=== PATIENT | male | born 1940 | race Caucasian/White ===

== ENCOUNTER 2021-01-28 21:37 | Inpatient (IN) | payer OTHER ==
[~2021-01-28] VITALS: Ht 170.2 cm; Wt 80.7 kg
--- NOTE | 2021-01-28 22:19 | NUR ---
BIB DAUGHTER FOR C/O INCREASED CONFUSION AND AGITATION. BIZARRE BEHAVIOR SUCH STICKING HIS HANDS IN THE POWER OUTLET OR FREQUENT MASTERBATION. PT WAS PLACED IN BED 11 ER, ON MONITOR. VSS. WILL CONT TO MONITOR,
[2021-01-28 22:40] LABS: BASOPHILS % (AUTO) 0.7 % (0.0-2.0); EOSINOPHILS % (AUTO) 4.7 % (0.0-6.0); HEMATOCRIT 37 % (39-51); HEMOGLOBIN 12.6 g/dL (13.5-17.5); LYMPHOCYTES # (AUTO) 1.5 /CMM (0.8-4.8); LYMPHOCYTES % (AUTO) 25.4 % (20.0-44.0); MEAN CORPUSCULAR HGB CONC 34 g/dl (31.0-36.0); MEAN CORPUSCULAR VOLUME 86 fL (80-96); MONOCYTES # (AUTO) 0.5 /CMM (0.1-1.30); MONOCYTES % (AUTO) 8.1 % (2.0-12.0); NEUTROPHILS # (AUTO) 3.5 /CMM (1.8-8.9); NEUTROPHILS % (AUTO) 61.1 % (43.0-81.0); PLATELET COUNT (AUTO) 185 /CMM (150-450); RED BLOOD CELL COUNT(AUTO) 4.27 MIL/uL (4.5-6.0); WHITE BLOOD COUNT (AUTO) 5.7 K/uL (4.3-11.0)
[2021-01-28 22:46] LABS: CALCIUM, SERUM 8.6 mg/dL (8.5-10.1); CARBON DIOXIDE 31 mmol/L (21-32); CHLORIDE 107 mmol/L (98-107); CREATININE 0.9 mg/dL (0.6-1.3); GLUCOSE 115 mg/dL (74-106); POTASSIUM 4.2 mmol/L (3.5-5.1); SODIUM SERUM 143 mmol/L (136-145); UREA NITROGEN, BLOOD 18 mg/dL (7-18)
[2021-01-28 22:52] LABS: ALANINE AMINOTRANSFERASE 16 U/L (12-78); ALBUMIN 3.7 g/dL (3.4-5.0); ALKALINE PHOSPHATASE 106 U/L (46-116); ASPARTATE AMINOTRANSFERASE 13 U/L (15-37); BILIRUBIN,DIRECT 0.1 mg/dL (0.0-0.2); BILIRUBIN,TOTAL 0.2 mg/dL (0.2-1.0); TOTAL PROTEIN, SERUM 7.1 g/dL (6.4-8.2)
[2021-01-28 22:53] LABS: ACETAMINOPHEN 0 ug/ml (10-30); ALCOHOL, BLOOD < 3 mg/dL (0-0)
[2021-01-28] MEDS ORDERED: ASPI-1169 PO (23:15)
[2021-01-28] MEDS ORDERED: SERT50TA PO (23:15)
[2021-01-28] MEDS ORDERED: PHEN100C4 PO (23:15)
[2021-01-28] MEDS ORDERED: TAMS-12 PO (23:15)
[2021-01-28] MEDS ORDERED: MEMA10TA PO (23:15)
[2021-01-28] MEDS ORDERED: RISP0.5T5 PO (23:15)
[2021-01-28] MEDS ORDERED: DONE10TA11 PO (23:15)
[2021-01-28] MEDS ORDERED: METF-442 PO (23:15)
[2021-01-28] MEDS ORDERED: FINA5TAB11 PO (23:15)
[2021-01-28] MEDS ORDERED: PRAV20TA4 PO (23:15)
[2021-01-28] MEDS ORDERED: MAG HYDROX/AL HYDROX/SIMETH 30 ML UDC PO PRN (23:30)
[2021-01-28] MEDS ORDERED: ONDANSETRON HCL/PF 4 MG/2 ML VIAL IVP PRN (23:30)
[2021-01-28] MEDS ORDERED: TEMAZEPAM 15 MG CAPSULE PO PRN (23:30)
[2021-01-28] MEDS ORDERED: ACETAMINOPHEN 325 MG TABLET PO PRN (23:30)
[2021-01-28] MEDS ORDERED: MAGNESIUM HYDROXIDE 30 ML UDC PO PRN (23:30)
[2021-01-28] MEDS ORDERED: HYDROCODONE/APAP 5/325MG TABLET PO PRN (23:30)
[2021-01-28] MEDS ORDERED: Z GUARD REMEDY 2 OZ OINT TP PRN (23:30)
--- NOTE | 2021-01-28 23:35 | NUR ---
covid negative, per lab
--- NOTE | 2021-01-29 00:15 | NUR ---
MS 310-2
--- NOTE | 2021-01-29 00:26 | NUR ---
REPORT GIVENT TO DEMARIO ON THIRD FLOOR
[2021-01-29 01:10] VITALS: BP 129/88
--- NOTE | 2021-01-29 01:12 | NUR ---
PT WAS TRANSFERRED TO [facility] IN STABLE CONDITION
--- NOTE | 2021-01-29 01:29 | NUR ---
MS CASTING MACHINE OPERATOR AUTOMATIC NOTE RECEIVED PATIENT VIA GURNEY. AMBULATED TO BED WITH ASSISTANCE. ABLE TO SAY NAME AND , KNOWS HE IS IN THE HOSPITAL BUT NOT WHICH HOSPITAL. CANT GIVE ANY OTHER MEANINGFUL INFORMATION ABOUT HEALTH. TOLERATING ROOM AIR. RESPIRATIONS ARE EVEN AND UNLABORED. NO S/S SOB NOTED. NO C/O PAIN AT THIS TIME. IN NO APPARENT DISTRESS. IV ACCESS IN LEFT HAND #22 PATENT AND SALINE LOCKED. INITIAL PHYSICAL ASSESSMENT COMPLETED AT THIS TIME. SKIN ASSESSMENT DONE, SKIN INTACT. MECHANICAL MAINTENANCE WORKER OBTAINED VITALS AND COMPLETED BELONGINGS LIST. BED IS LOW AND LOCKED, HOB ELEVATED IN SEMI FOWLERS, SIDE RIAL SUP X2, CALL LIGHT WITHIN REACH, INFORMED ON USE. WILL CONTINUE TO MONITOR THROUGHOUT SHIFT.
[2021-01-29 01:46] VITALS: BP 129/88
--- NOTE | 2021-01-29 05:00 | NUR ---
MS RN NOTE PATIENT REFUSED AM LABS. INFORMED HIM OF BENEFITS AND IMPORTANCE. CONTINUES TO REFUSE.
--- NOTE | 2021-01-29 06:49 | NUR ---
MS RN CLOSING NOTE PATIENT RESTING IN BED. A/OX1-2, CONFUSED. REMAINS TOLERATING ROOM AIR. NO C/O PAIN. NO DISTRESS. IV ACCESS IN LEFT HAND #22 MAINTAINED. BED REMAINS LOW AND LOCKED, HOB ELEVATED IN SEMI FOWLERS, SIDE RIAL SUP X2, CALL LIGHT WITHIN REACH. WILL ENDORSE TO ONCOMING SHIFT.
[2021-01-29 08:00] VITALS: BP 128/71
[2021-01-29] MEDS: MEMANTINE HCL 5 MG TABLET PO SCH ×2 (10:16→17:38)
[2021-01-29] MEDS: ASPIRIN 81 MG TAB.CHEW PO SCH (10:16)
[2021-01-29] MEDS: PHENYTOIN EXTENDED RELEASE 100 MG CAPSULE PO SCH ×3 (10:17→17:38)
[2021-01-29] MEDS: FINASTERIDE (5 MG) 5 MG TABLET PO SCH (10:17)
[2021-01-29] MEDS: SERTRALINE HCL 50 MG TABLET PO SCH (10:17)
[2021-01-29] MEDS: METFORMIN 500 MG TABLET PO SCH ×2 (10:20→17:39)
[2021-01-29] MEDS: PANTOPRAZOLE 40 MG TABLET.DR PO SCH (10:20)
--- NOTE | 2021-01-29 15:00 | NUR ---
refused labs today,has sitter,urine sent down for urinalysis.
[2021-01-29 16:00] VITALS: BP 139/77
--- NOTE | 2021-01-29 16:30 | NUR ---
now agreed to labs.texted dr. conklin as pt. c/o swelling rt inner thigh near knee.given orders per dr. conklin.
[2021-01-29 17:07] LABS: BASOPHILS % (AUTO) 0.7 % (0.0-2.0); EOSINOPHILS % (AUTO) 4.7 % (0.0-6.0); HEMATOCRIT 35 % (39-51); LYMPHOCYTES # (AUTO) 1.2 /CMM (0.8-4.8); LYMPHOCYTES % (AUTO) 24.4 % (20.0-44.0); MEAN CORPUSCULAR HGB CONC 35 g/dl (31.0-36.0); MEAN CORPUSCULAR VOLUME 86 fL (80-96); MONOCYTES # (AUTO) 0.4 /CMM (0.1-1.30); MONOCYTES % (AUTO) 7.7 % (2.0-12.0); NEUTROPHILS # (AUTO) 3.2 /CMM (1.8-8.9); NEUTROPHILS % (AUTO) 62.5 % (43.0-81.0); PLATELET COUNT (AUTO) 187 /CMM (150-450); RED BLOOD CELL COUNT(AUTO) 4.07 MIL/uL (4.5-6.0)
[2021-01-29 17:20] LABS: BILIRUBIN,URINE NEGATIVE (NEGATIVE); COLOR,URINE YELLOW (YELLOW); LEUKOCYTE ESTERASE ,URINE NEGATIVE (NEGATIVE); NITRITE, URINE NEGATIVE (NEGATIVE); PH,URINE 5.5 (5.0-8.0); PROTEIN,URINE NEGATIVE (NEGATIVE); UGLUCOSE 100 MG/DL mg/dL (NEGATIVE); UROBILINOGEN,URINE 0.2 EU/dL (0.2)
[2021-01-29 17:23] LABS: CALCIUM, SERUM 7.9 mg/dL (8.5-10.1); CREATININE 0.7 mg/dL (0.6-1.3); MAGNESIUM 1.7 mg/dL (1.8-2.4); PHOSPHORUS 2.8 mg/dL (2.5-4.9); POTASSIUM 4.1 mmol/L (3.5-5.1)
[2021-01-29 17:35] LABS: THYROID STIMULATING HORMONE 1.108 uIU/mL (0.358-3.74)
[2021-01-29] MEDS: risperiDONE 0.25 MG TABLET PO SCH (17:38)
--- NOTE | 2021-01-29 18:50 | NUR ---
TECH HERE TO DO VENOUS AND ARTERIAL STUDIES.
--- NOTE | 2021-01-29 19:35 | NUR ---
MS RN NOTES RECEIVED SITTING ON EDGE OF BED,A/O X2,WANTS TO USE THE RESTROOM,SITTER AT BEDSIDE FOR SAFETY,SALINE LOCK LEFT INTACT AND PATENT.NO COMPLAINTS AT THE MOMENT,CALL LIGHT IN REACH,NEEDS ANTICIPATED.
[2021-01-29 20:00] VITALS: BP 140/84
--- NOTE | 2021-01-29 20:00 | NUR ---
MS RN NOTES ARTERIAL DUPLEX ULTRASOUND RIGHT THIGH NEGATIVE FOR DEEP VEIN THROMBOSIS
[2021-01-29] MEDS: HEPARIN SODIUM, PORCINE 5000 UNITS/1 ML VIAL SQ SCH ×2 (21:00→21:19)
--- NOTE | 2021-01-29 21:00 | NUR ---
MS RN NOTES DUE PO MEDS TAKEN.REFUSED HEPARIN DOSE FOR DVT PROPHYLAXIS,EXPLAINED RISK AND BENEFITS,STILL REFUSED.CHARGE NURSE MADE AWARE.
[2021-01-29] MEDS: DONEPEZIL 5 MG TABLET PO SCH (21:20)
[2021-01-29] MEDS: TAMSULOSIN 0.4 MG CAP.SR.24H PO SCH (21:20)
[2021-01-29] MEDS: ATORVASTATIN 10 MG TABLET PO SCH (21:21)
--- NOTE | 2021-01-29 22:49 | NUR ---
MS RN NOTES C/O INSOMNIA,RESTORIL 15MG PO GIVEN PER PATIENT REQUEST
--- NOTE | 2021-01-30 02:00 | NUR ---
MS RN NOTES SLEEPING,KEPT WARM AND COMFORTABLE.SITTER AT BEDSIDE.
[2021-01-30 06:06] LABS: BASOPHILS % (AUTO) 0.4 % (0.0-2.0); EOSINOPHILS % (AUTO) 4.6 % (0.0-6.0); HEMATOCRIT 36 % (39-51); HEMOGLOBIN 12.7 g/dL (13.5-17.5); LYMPHOCYTES # (AUTO) 1.1 /CMM (0.8-4.8); LYMPHOCYTES % (AUTO) 19.2 % (20.0-44.0); MEAN CORPUSCULAR HGB CONC 35 g/dl (31.0-36.0); MEAN CORPUSCULAR VOLUME 85 fL (80-96); MONOCYTES # (AUTO) 0.5 /CMM (0.1-1.30); MONOCYTES % (AUTO) 8.6 % (2.0-12.0); NEUTROPHILS # (AUTO) 3.9 /CMM (1.8-8.9); NEUTROPHILS % (AUTO) 67.2 % (43.0-81.0); PLATELET COUNT (AUTO) 181 /CMM (150-450); RED BLOOD CELL COUNT(AUTO) 4.25 MIL/uL (4.5-6.0); WHITE BLOOD COUNT (AUTO) 5.8 K/uL (4.3-11.0)
[2021-01-30 06:13] LABS: CALCIUM, SERUM 8.8 mg/dL (8.5-10.1); CREATININE 0.8 mg/dL (0.6-1.3); MAGNESIUM 1.9 mg/dL (1.8-2.4); PHOSPHORUS 3.1 mg/dL (2.5-4.9); POTASSIUM 3.9 mmol/L (3.5-5.1)
--- NOTE | 2021-01-30 06:42 | NUR ---
MS RN NOTES FAIRLY RESTED AT NIGHT,FALL RISK,SITTER AT BEDSIDE,SLEPT 7 HOURS LAST NIGHT.IN NO ACUTE DISTRESS.WILL ENDORSE TO DAY NURSE FOR LETY.
--- NOTE | 2021-01-30 08:01 | NUR ---
RN OPENING NOTE RECEIVED PATIENT IN BED, AO X 2, ABLE TO RESPONDS ALL STIMULI. SKIN IS WARM TO TOUCH, KEEP CLEAN/DRY INTACT IV SITE. RESPIRATORY EVEN AND UNLABORED IN ROOM AIR. KEPT ELEVATED HOB FOR ENSURE AIR AND ASPIRATION PRECAUTION, ALSO LOWEST BED POSITION FOR SAFETY. SITTER AT BED SIDE. CALL LIGHT WITHIN REACH, WILL CONTINUE TO MONITOR.
[2021-01-30] MEDS: ASPIRIN 81 MG TAB.CHEW PO SCH (08:25)
[2021-01-30] MEDS: MEMANTINE HCL 5 MG TABLET PO SCH ×2 (08:25→17:06)
[2021-01-30] MEDS: SERTRALINE HCL 50 MG TABLET PO SCH (08:25)
[2021-01-30] MEDS: PANTOPRAZOLE 40 MG TABLET.DR PO SCH (08:25)
[2021-01-30] MEDS: PHENYTOIN EXTENDED RELEASE 100 MG CAPSULE PO SCH ×3 (08:26→17:06)
[2021-01-30] MEDS: METFORMIN 500 MG TABLET PO SCH ×2 (08:26→17:06)
[2021-01-30] MEDS: FINASTERIDE (5 MG) 5 MG TABLET PO SCH (08:26)
[2021-01-30 08:27] VITALS: BP 122/75
[2021-01-30] MEDS: HEPARIN SODIUM, PORCINE 5000 UNITS/1 ML VIAL SQ SCH ×2 (08:28→20:51)
[2021-01-30 16:00] VITALS: BP 126/77
[2021-01-30] MEDS: risperiDONE 0.25 MG TABLET PO SCH (17:06)
[2021-01-30 20:00] VITALS: BP 128/70
--- NOTE | 2021-01-30 20:00 | NUR ---
MS RN OPENING NOTE RECEIVED PT AWAKE IN BED. A/O X 2, ABLE TO RESPONDS ALL STIMULI. PT STABLE ON ROOM AIR. NO SOB NOTED. NO S/S OF RESPIRATORY DISTRESS. PT IS AMBULATORY WITH ASSIST. PT HAS NO C/O PAIN AT THIS TIME. IV ACCESS IN LEFT HAND #22. IV IS INTACT, PATENT, AND FLUSHING WELL. SAFETY AND ASPIRATION PRECAUTIONS MAINTAINED. BED IN LOWEST LOCKED POSITION, HOB ELEVATED, SIDE RAILS UP X2. CALL LIGHT AND TABLE WITHIN REACH. WILL CONTINUE WITH PLAN OF CARE.
[2021-01-30] MEDS: ATORVASTATIN 10 MG TABLET PO SCH (21:04)
[2021-01-30] MEDS: DONEPEZIL 5 MG TABLET PO SCH (21:04)
[2021-01-30] MEDS: TAMSULOSIN 0.4 MG CAP.SR.24H PO SCH (21:04)
--- NOTE | 2021-01-31 06:07 | NUR ---
MS RN CLOSING NOTE PT IS IN BED WITH EYES CLOSED, EASY TO AROUSE. A/O X 2, ABLE TO RESPOND TO ALL STIMULI. PT STABLE ON ROOM AIR. NO SOB NOTED. NO S/S OF RESPIRATORY DISTRESS. PT IS AMBULATORY WITH ASSIST. PT HAS NO C/O PAIN AT THIS TIME. IV ACCESS IS INTACT, PATENT, AND FLUSHING WELL. ALL NEEDS HAVE BEEN MET. SAFETY AND ASPIRATION PRECAUTIONS MAINTAINED AT ALL TIMES. BED IN LOWEST LOCKED POSITION, HOB ELEVATED, SIDE RAILS UP X2. CALL LIGHT AND TABLE WITHIN REACH. WILL ENDORSE TO ONCOMING NURSE FOR LETY.
[2021-01-31 06:15] LABS: BASOPHILS % (AUTO) 0.4 % (0.0-2.0); EOSINOPHILS % (AUTO) 5.2 % (0.0-6.0); HEMATOCRIT 35 % (39-51); HEMOGLOBIN 12.4 g/dL (13.5-17.5); LYMPHOCYTES # (AUTO) 1.3 /CMM (0.8-4.8); LYMPHOCYTES % (AUTO) 24.5 % (20.0-44.0); MEAN CORPUSCULAR HGB CONC 36 g/dl (31.0-36.0); MEAN CORPUSCULAR VOLUME 84 fL (80-96); MONOCYTES # (AUTO) 0.4 /CMM (0.1-1.30); MONOCYTES % (AUTO) 8.2 % (2.0-12.0); NEUTROPHILS # (AUTO) 3.2 /CMM (1.8-8.9); NEUTROPHILS % (AUTO) 61.7 % (43.0-81.0); PLATELET COUNT (AUTO) 180 /CMM (150-450); RED BLOOD CELL COUNT(AUTO) 4.14 MIL/uL (4.5-6.0); WHITE BLOOD COUNT (AUTO) 5.2 K/uL (4.3-11.0)
[2021-01-31 07:18] LABS: CALCIUM, SERUM 8.8 mg/dL (8.5-10.1); CREATININE 0.8 mg/dL (0.6-1.3); MAGNESIUM 1.7 mg/dL (1.8-2.4); PHOSPHORUS 3.9 mg/dL (2.5-4.9); POTASSIUM 4.1 mmol/L (3.5-5.1)
--- NOTE | 2021-01-31 08:00 | NUR ---
RN NOTE PT AWAKE IN BED RESTING. A/O X2 AND [place] SPEAKING. NO COMPLAINT OF PAIN OR NAUSEA PRESENT. CURRENTLY ON RA WITH NO SOB OR RESPIRATORY DISTRESS PRESENT. PT IS AMBULATORY WITH WALKER ASSISTANCE AND BATHROOM PRIVILEGES. SKIN IS INTACT. NO EDEMA PRESENT. ON CCHO DIET. HL PRESENT ON L HAND 22G AND FLUSHES WELL. SAFETY MEASURES IN PLACE. SIDE RAILS RAISED. BED LOWERED. CALL LIGHT WITHIN REACH. WILL CONTINUE TO MONITOR.
[2021-01-31] MEDS: PHENYTOIN EXTENDED RELEASE 100 MG CAPSULE PO SCH ×3 (08:35→17:02)
[2021-01-31] MEDS: FINASTERIDE (5 MG) 5 MG TABLET PO SCH (08:35)
[2021-01-31] MEDS: SERTRALINE HCL 50 MG TABLET PO SCH (08:35)
[2021-01-31] MEDS: METFORMIN 500 MG TABLET PO SCH ×2 (08:35→17:02)
[2021-01-31] MEDS: MEMANTINE HCL 5 MG TABLET PO SCH ×2 (08:35→17:02)
[2021-01-31] MEDS: ASPIRIN 81 MG TAB.CHEW PO SCH (08:35)
[2021-01-31] MEDS: HEPARIN SODIUM, PORCINE 5000 UNITS/1 ML VIAL SQ SCH ×3 (08:38→21:35)
[2021-01-31] MEDS: PANTOPRAZOLE 40 MG TABLET.DR PO SCH (08:48)
[2021-01-31] MEDS: Magnesium 1GM/D5W 100ML PREMIX 100 ML IV SCH ×2 (10:54→12:14)
[2021-01-31] MEDS ORDERED: MAG HYDROX/AL HYDROX/SIMETH 30 ML UDC PO PRN (13:00)
--- NOTE | 2021-01-31 14:00 | NUR ---
RN NOTE PT COMPLAINT OF PAIN IN STOMACH. MAALOX GIVEN TO PT. REASSESSMENT OF PT 1 HR AFTER ADMIN SHOWS NO MORE PAIN IN STOMACH. WILL CONTINUE TO MONITOR
[2021-01-31 16:00] VITALS: BP 109/64
[2021-01-31] MEDS: risperiDONE 0.25 MG TABLET PO SCH (17:02)
--- NOTE | 2021-01-31 18:26 | NUR ---
RN CLOSING NOTE PT AWAKE IN BED RESTING. A/O X2 AND [place] SPEAKING. NO COMPLAINT OF PAIN OR NAUSEA PRESENT. CURRENTLY ON RA WITH NO SOB OR RESPIRATORY DISTRESS PRESENT. PT IS AMBULATORY WITH WALKER ASSISTANCE AND BATHROOM PRIVILEGES. SKIN IS INTACT. NO EDEMA PRESENT. ON CCHO DIET. HL PRESENT ON L HAND 22G AND FLUSHES WELL. ROUTINE MEDS GIVEN. SAFETY MEASURES IN PLACE. SIDE RAILS RAISED. BED LOWERED. CALL LIGHT WITHIN REACH. REPORT TO BE GIVEN TO NIGHT NURSE FOR LETY.
--- NOTE | 2021-01-31 19:30 | NUR ---
RN OPENING NOTE PATIENT IN BED EYES CLOSED, EASILY AWAKENED. PATIENT IS A/O X 3. PATIENT IS ABLE TO MAKE NEEDS KNOWN. CURRENTLY TOLERATING ROOM AIR, BREATHING EVEN AND UNLABORED. L HAND 22 G PATENT. SAFETY MEASURES IN PLACE: BED IN LOCKED AND LOWEST POSITION, SIDE RAILS UP X 2, CALL LIGHT WITHIN REACH. WILL MONITOR PATIENT CLOSELY.
[2021-01-31 20:00] VITALS: BP 109/64
[2021-01-31] MEDS: DONEPEZIL 5 MG TABLET PO SCH (21:33)
[2021-01-31] MEDS: TAMSULOSIN 0.4 MG CAP.SR.24H PO SCH (21:33)
[2021-01-31] MEDS: ATORVASTATIN 10 MG TABLET PO SCH (21:33)
--- NOTE | 2021-01-31 21:40 | NUR ---
PATIENT REFUSED HEPARIN SUBCUTANEOUS, HE STATES THAT THE INJECTION "MAKES ME SICK". EDUCATED PATIENT REGARDING MEDICATION BUT STILL REFUSES.
[2021-01-31 22:00] VITALS: BP 109/64
--- NOTE | 2021-02-01 07:34 | NUR ---
RN CLOSING NOTE PATIENT DOES NOT APPEAR TO BE IN ANY APPARENT DISTRESS, ENDORSED TO DAY SHIFT NURSE FOR LETY.
[2021-02-01 08:00] VITALS: BP 120/76
[2021-02-01] MEDS: SERTRALINE HCL 50 MG TABLET PO SCH (08:40)
[2021-02-01] MEDS: ASPIRIN 81 MG TAB.CHEW PO SCH (08:40)
[2021-02-01] MEDS: FINASTERIDE (5 MG) 5 MG TABLET PO SCH (08:40)
[2021-02-01] MEDS: PHENYTOIN EXTENDED RELEASE 100 MG CAPSULE PO SCH ×3 (08:40→17:12)
[2021-02-01] MEDS: METFORMIN 500 MG TABLET PO SCH ×2 (08:40→17:12)
[2021-02-01] MEDS: MEMANTINE HCL 5 MG TABLET PO SCH ×2 (08:41→17:11)
[2021-02-01] MEDS: PANTOPRAZOLE 40 MG TABLET.DR PO SCH (08:42)
[2021-02-01 16:00] VITALS: BP 114/70
--- NOTE | 2021-02-01 17:08 | NUR ---
RN CLOSING NOTE PT AWAKE IN BED RESTING. A/O X2 AND [place] SPEAKING. NO COMPLAINT OF PAIN OR NAUSEA PRESENT. CURRENTLY ON RA WITH NO SOB OR RESPIRATORY DISTRESS PRESENT. PT IS AMBULATORY WITH WALKER ASSISTANCE AND BATHROOM PRIVILEGES. SKIN IS INTACT. NO EDEMA PRESENT. ON CCHO DIET. HL PRESENT ON L HAND 22G AND FLUSHES WELL. ROUTINE MEDS GIVEN. SAFETY MEASURES IN PLACE. SIDE RAILS RAISED. BED LOWERED. CALL LIGHT WITHIN REACH. REPORT TO BE GIVEN TO NIGHT NURSE FOR LETY.
[2021-02-01] MEDS: risperiDONE 0.25 MG TABLET PO SCH (17:11)
--- NOTE | 2021-02-01 19:30 | NUR ---
MS RN OPENING NOTES: RECEIVED PATIENT SLEEP IN BED COMFORTABLY, BED IN LOW POSITION, CALL LIGHTS WITHIN REACH, NO COMPLAIN OF PAIN AND DISCOMFORT AT THIS TIME, A/OX3, PATIENT WAS KNOWN WANDERING AROUND WITH 1:1 SITTER, AMBULATORY WITH SUPERVISION, PATIENT IS CONTINENT, WITH BRP/ URINAL. WITH IV LINE LARM #22 SL. SKIN IS INTACT, ALL NEEDS MET,KEPT CLEAN AND DRY, WILL CONTINUE TO MONITOR.
[2021-02-01 19:50] VITALS: BP 109/61
[2021-02-01 20:18] LABS: BASOPHILS % (AUTO) 0.5 % (0.0-2.0); EOSINOPHILS % (AUTO) 5.6 % (0.0-6.0); HEMATOCRIT 33 % (39-51); HEMOGLOBIN 11.5 g/dL (13.5-17.5); LYMPHOCYTES # (AUTO) 1.3 /CMM (0.8-4.8); LYMPHOCYTES % (AUTO) 23.3 % (20.0-44.0); MEAN CORPUSCULAR HGB CONC 35 g/dl (31.0-36.0); MEAN CORPUSCULAR VOLUME 85 fL (80-96); MONOCYTES # (AUTO) 0.5 /CMM (0.1-1.30); NEUTROPHILS # (AUTO) 3.5 /CMM (1.8-8.9); NEUTROPHILS % (AUTO) 61.6 % (43.0-81.0); PLATELET COUNT (AUTO) 173 /CMM (150-450); RED BLOOD CELL COUNT(AUTO) 3.88 MIL/uL (4.5-6.0); WHITE BLOOD COUNT (AUTO) 5.6 K/uL (4.3-11.0)
[2021-02-01 20:39] LABS: CALCIUM, SERUM 8.6 mg/dL (8.5-10.1); CREATININE 0.9 mg/dL (0.6-1.3); PHOSPHORUS 3.3 mg/dL (2.5-4.9); POTASSIUM 4.5 mmol/L (3.5-5.1)
[2021-02-01] MEDS: DONEPEZIL 5 MG TABLET PO SCH (21:12)
[2021-02-01] MEDS: ATORVASTATIN 10 MG TABLET PO SCH (21:13)
[2021-02-01] MEDS: TAMSULOSIN 0.4 MG CAP.SR.24H PO SCH (21:13)
[2021-02-01] MEDS: HEPARIN SODIUM, PORCINE 5000 UNITS/1 ML VIAL SQ SCH (21:14)
[2021-02-02 06:10] LABS: BASOPHILS % (AUTO) 0.8 % (0.0-2.0); EOSINOPHILS % (AUTO) 6.1 % (0.0-6.0); HEMATOCRIT 34 % (39-51); LYMPHOCYTES # (AUTO) 1.1 /CMM (0.8-4.8); LYMPHOCYTES % (AUTO) 23.7 % (20.0-44.0); MEAN CORPUSCULAR HGB CONC 35 g/dl (31.0-36.0); MEAN CORPUSCULAR VOLUME 85 fL (80-96); MONOCYTES # (AUTO) 0.4 /CMM (0.1-1.30); MONOCYTES % (AUTO) 9.5 % (2.0-12.0); NEUTROPHILS # (AUTO) 2.8 /CMM (1.8-8.9); NEUTROPHILS % (AUTO) 59.9 % (43.0-81.0); PLATELET COUNT (AUTO) 182 /CMM (150-450); RED BLOOD CELL COUNT(AUTO) 4.01 MIL/uL (4.5-6.0); WHITE BLOOD COUNT (AUTO) 4.7 K/uL (4.3-11.0)
--- NOTE | 2021-02-02 06:26 | NUR ---
MS RN CLOSING NOTES: PATIENT IN SLEEP IN BED COMFORTABLY, NO COMPLAIN OF PAIN AND DISCOMFORT, BED IN LOW POSITION, CALL LIGHTS WITHIN REACH, SAMI SPEAKING , ABLE TO EXPRESS NEEDS, PATIENT WAS AMBULATORY WITH ASSISTANCE, WITH IV LINE #22 SL DUE MEDS GIVEN, ALL NEEDS MET, KEPT CLEAN AND DRY, WITH 1:1 SITTER , WILL ENDORSE TO INCOMING SHIFT.
[2021-02-02 06:55] LABS: CALCIUM, SERUM 8.1 mg/dL (8.5-10.1); CREATININE 0.7 mg/dL (0.6-1.3); MAGNESIUM 2.1 mg/dL (1.8-2.4); PHOSPHORUS 3.4 mg/dL (2.5-4.9); POTASSIUM 4.1 mmol/L (3.5-5.1)
--- NOTE | 2021-02-02 08:00 | NUR ---
RN OPENING NOTE PT AWAKE IN BED RESTING. A/O X2 AND PORTUGUESE SPEAKING. NO COMPLAINT OF PAIN OR NAUSEA PRESENT. CURRENTLY ON RA WITH NO SOB OR RESPIRATORY DISTRESS PRESENT. PT IS AMBULATORY WITH WALKER ASSISTANCE AND BATHROOM PRIVILEGES. SKIN IS INTACT. NO EDEMA PRESENT. ON CCHO DIET. HL PRESENT ON L HAND 22G AND FLUSHES WELL. SAFETY MEASURES IN PLACE. SIDE RAILS RAISED. BED LOWERED. CALL LIGHT WITHIN REACH. WILL CONTINUE TO MONITOR.
[2021-02-02] MEDS: FINASTERIDE (5 MG) 5 MG TABLET PO SCH (08:48)
[2021-02-02] MEDS: SERTRALINE HCL 50 MG TABLET PO SCH (08:48)
[2021-02-02] MEDS: MEMANTINE HCL 5 MG TABLET PO SCH ×2 (08:48→17:04)
[2021-02-02] MEDS: METFORMIN 500 MG TABLET PO SCH ×2 (08:48→17:04)
[2021-02-02] MEDS: ASPIRIN 81 MG TAB.CHEW PO SCH (08:48)
[2021-02-02] MEDS: PANTOPRAZOLE 40 MG TABLET.DR PO SCH (08:48)
[2021-02-02] MEDS: PHENYTOIN EXTENDED RELEASE 100 MG CAPSULE PO SCH ×3 (08:48→17:04)
[2021-02-02] MEDS: HEPARIN SODIUM, PORCINE 5000 UNITS/1 ML VIAL SQ SCH ×2 (08:54→20:35)
[2021-02-02] MEDS ORDERED: NEOMY SULF/BACITRAC ZN/POLY 15 GM TUBE TP SCH (10:00)
[2021-02-02 16:28] VITALS: BP 123/68
[2021-02-02] MEDS: risperiDONE 0.25 MG TABLET PO SCH (17:04)
--- NOTE | 2021-02-02 18:19 | NUR ---
RN CLOSING NOTE PT AWAKE IN BED RESTING. A/O X2 AND [place] SPEAKING. NO COMPLAINT OF PAIN OR NAUSEA PRESENT. CURRENTLY ON RA WITH NO SOB OR RESPIRATORY DISTRESS PRESENT. PT IS AMBULATORY WITH WALKER ASSISTANCE AND BATHROOM PRIVILEGES. PT WANDERS HALLWAYS FREQUENTLY AND OBSERVED THROUGHOUT SHIFT. SKIN IS INTACT. NO EDEMA PRESENT. ON CCHO DIET. HL PRESENT ON L HAND 22G AND FLUSHES WELL. SAFETY MEASURES IN PLACE. SIDE RAILS RAISED. BED LOWERED. CALL LIGHT WITHIN REACH. REPORT TO BE GIVEN TO NIGHT NURSE FOR LETY.
--- NOTE | 2021-02-02 19:39 | NUR ---
MS RN OPENING NOTE RECEIVED PT AWAKE IN BED. A/O X 2, ABLE TO RESPOND TO ALL STIMULI. PT STABLE ON ROOM AIR. NO SOB NOTED. NO S/S OF RESPIRATORY DISTRESS. PT IS AMBULATORY WITH WALKER ASSIST. PT HAS NO C/O PAIN AT THIS TIME. IV ACCESS IN LEFT HAND #22, SALINE-LOCKED. IV IS INTACT, PATENT, AND FLUSHING WELL. SAFETY AND ASPIRATION PRECAUTIONS MAINTAINED. BED IN LOWEST LOCKED POSITION, HOB ELEVATED, SIDE RAILS UP X2. CALL LIGHT AND TABLE WITHIN REACH. WILL CONTINUE WITH PLAN OF CARE.
[2021-02-02 20:00] VITALS: BP 115/69
[2021-02-02] MEDS: DONEPEZIL 5 MG TABLET PO SCH (21:08)
[2021-02-02] MEDS: TAMSULOSIN 0.4 MG CAP.SR.24H PO SCH (21:09)
[2021-02-02] MEDS: ATORVASTATIN 10 MG TABLET PO SCH (21:09)
[2021-02-03 05:55] LABS: BASOPHILS % (AUTO) 0.6 % (0.0-2.0); HEMATOCRIT 35 % (39-51); LYMPHOCYTES # (AUTO) 1.3 /CMM (0.8-4.8); LYMPHOCYTES % (AUTO) 26.6 % (20.0-44.0); MEAN CORPUSCULAR HGB CONC 35 g/dl (31.0-36.0); MEAN CORPUSCULAR VOLUME 86 fL (80-96); MONOCYTES # (AUTO) 0.4 /CMM (0.1-1.30); MONOCYTES % (AUTO) 8.6 % (2.0-12.0); NEUTROPHILS # (AUTO) 2.9 /CMM (1.8-8.9); NEUTROPHILS % (AUTO) 57.2 % (43.0-81.0); PLATELET COUNT (AUTO) 191 /CMM (150-450); RED BLOOD CELL COUNT(AUTO) 4.05 MIL/uL (4.5-6.0)
[2021-02-03 06:09] LABS: CALCIUM, SERUM 8.6 mg/dL (8.5-10.1); CREATININE 0.8 mg/dL (0.6-1.3); PHOSPHORUS 3.4 mg/dL (2.5-4.9)
--- NOTE | 2021-02-03 06:17 | NUR ---
MS RN CLOSING NOTE PT IS AWAKE IN BED AT THIS TIME. A/O X 2, ABLE TO RESPOND TO ALL STIMULI. PT STABLE ON ROOM AIR. NO SOB NOTED. NO S/S OF RESPIRATORY DISTRESS. PT IS AMBULATORY WITH WALKER ASSIST. PT HAS NO C/O PAIN AT THIS TIME. IV ACCESS IS INTACT, PATENT, AND FLUSHING WELL. ALL NEEDS HAVE BEEN MET. SAFETY AND ASPIRATION PRECAUTIONS MAINTAINED AT ALL TIMES. BED IN LOWEST LOCKED POSITION, HOB ELEVATED, SIDE RAILS UP X2. CALL LIGHT AND TABLE WITHIN REACH. WILL ENDORSE TO ONCOMING NURSE FOR LETY.
--- NOTE | 2021-02-03 08:00 | NUR ---
RN OPENING NOTE RECEIVED PT AWAKE IN BED. A/O X 2, ABLE TO RESPOND TO ALL STIMULI. PT IS STABLE ON ROOM AIR. NO SOB NOTED. NO S/S OF RESPIRATORY DISTRESS. PT IS AMBULATORY WITH WALKER ASSIST. PT HAS NO C/O PAIN AT THIS TIME. IV ACCESS OF L AC G# 22 IS INTACT, PATENT, AND FLUSHING WELL. PT SAFETY AND ASPIRATION PRECAUTIONS MAINTAINED. BED IN LOW POSITION, HOB ELEVATED AT 30 DEGREE, SIDE RAILS UP X2. CALL LIGHT AND TABLE WITHIN REACH. WILL CONTINUE TO MONITOR PT.
[2021-02-03] MEDS: PANTOPRAZOLE 40 MG TABLET.DR PO SCH (08:23)
[2021-02-03] MEDS: PHENYTOIN EXTENDED RELEASE 100 MG CAPSULE PO SCH ×2 (08:24→13:34)
[2021-02-03] MEDS: ASPIRIN 81 MG TAB.CHEW PO SCH (08:24)
[2021-02-03] MEDS: METFORMIN 500 MG TABLET PO SCH (08:24)
[2021-02-03] MEDS: FINASTERIDE (5 MG) 5 MG TABLET PO SCH (08:25)
[2021-02-03] MEDS: MEMANTINE HCL 5 MG TABLET PO SCH (08:25)
[2021-02-03] MEDS: SERTRALINE HCL 50 MG TABLET PO SCH (08:25)
[2021-02-03] MEDS: HEPARIN SODIUM, PORCINE 5000 UNITS/1 ML VIAL SQ SCH (08:27)
--- NOTE | 2021-02-03 11:05 | NUR ---
RN NOTE PER FIDEL ALCARAZ STOP NEOSPORIN OINT. ORDERS READ BACK AND CARRIED OUT, NEOSPORIN NON ADMINISTERED. WILL CONTINUE WITH PLAN OF CARE
--- NOTE | 2021-02-03 16:23 | NUR ---
LIFE CYCLE ASSESSMENT ANALYST NOTED PT DISCHARGE TO [facility] AT THIS TIME. REPORT CALLED IN TO NATALI LE @ [facility]. PT MEDICALLY STABLE AND CLEARED FOR DISCHARGE BY KIERAN ENGEL DNP. ALL DISCHARGE INSTRUCTIONS PROVIDED. PT VERBALIZED UNDERSTANDING. PT KEPT CLEAN AND DRY. ALL BELONGINGS ACCOUNTED FOR, SEND WITH PT. IV ACCESS REMOVED, PRESSURE APPLIED, SECURED WITH GAUZE AND TAPE, NO SIGN OF BLEEDING OR INFILTRATION NOTED. ID BAND REMOVED. PT LEFT UNIT IN STABLE CONDITION, TRANSPORTED BY TWO AMBULANCE PERSONNEL. HANS [place]STON NURSE AND KIERAN ENGEL DNP. Addendum: 02/03/21 at 1744 by LORENA CALLE RN LIFE CYCLE ASSESSMENT ANALYST NOTED PT DISCHARGE TO [facility] AT THIS TIME. REPORT CALLED IN TO NATALI LE @ [facility]. PT MEDICALLY STABLE AND CLEARED FOR DISCHARGE BY KIERAN ENGEL NP. ALL DISCHARGE INSTRUCTIONS PROVIDED. PT VERBALIZED UNDERSTANDING. PT KEPT CLEAN AND DRY. ALL BELONGINGS ACCOUNTED FOR, SEND WITH PT. IV ACCESS REMOVED, PRESSURE APPLIED, SECURED WITH GAUZE AND TAPE, NO SIGN OF BLEEDING OR INFILTRATION NOTED. ID BAND REMOVED. PT LEFT UNIT IN STABLE CONDITION, TRANSPORTED BY TWO AMBULANCE PERSONNEL. HANS [place] NURSE AND KIERAN ENGEL NP AWARE.
== END 2021-02-03 16:30 | DRG 56 ==
LOC: ER 21:37 → MED 01-29 00:53
PROVIDERS: ADMIT Nurse Practitioner Acute Care; ATTEND Nurse Practitioner Family
DX: G30.9 Alzheimer's disease, unspecified (principal); G93.41 Metabolic encephalopathy; F02.81 Dementia in other diseases classified elsewhere, unspecified severity, with behavioral disturbance; E44.1 Mild protein-calorie malnutrition; F32.9 Major depressive disorder, single episode, unspecified; D63.8 Anemia in other chronic diseases classified elsewhere; N40.0 Benign prostatic hyperplasia without lower urinary tract symptoms; E11.9 Type 2 diabetes mellitus without complications; E66.9 Obesity, unspecified; E78.5 Hyperlipidemia, unspecified; G40.909 Epilepsy, unspecified, not intractable, without status epilepticus; Z86.73 Personal history of transient ischemic attack (TIA), and cerebral infarction without residual deficits; Z73.6 Limitation of activities due to disability; R53.1 Weakness; M62.50 Muscle wasting and atrophy, not elsewhere classified, unspecified site; Z68.27 Body mass index [BMI] 27.0-27.9, adult; Z79.84 Long term (current) use of oral hypoglycemic drugs; Z20.822 Contact with and (suspected) exposure to COVID-19
CPT/HCPCS: 36415; 71045-TC; 80048-TC; 80061-TC; 80076-TC; 83735-TC; 84100-TC; 84443-TC; 85025-TC; 87081-TC; 93926-TC; 93971-TC; 97110-TC; 97112-TC; 97116-TC; 97530-TC; C9803; G0378; G0480; J1644; J3475; J7050